=== PATIENT | female | born 2000 | race Caucasian/White ===

== ENCOUNTER 2020-01-03 01:36 | Emergency (ER) | payer SELFPAY ==
[~2020-01-03] VITALS: Ht 167.6 cm; Wt 72.6 kg
[2020-01-03 04:54] VITALS: BP 128/75
[2020-01-03] MEDS ORDERED: ACETAMINOPHEN 500 MG TAB PO ONE (05:00)
[2020-01-03] MEDS ORDERED: IBUPROFEN 800 MG TAB PO ONE (05:00)
== END 2020-01-03 06:01 | disposition home or self-care (01) ==
LOC: EDBD 01:36 → ER 01:41
DX: M79.89 Other specified soft tissue disorders (principal); V43.62XA Car passenger injured in collision with other type car in traffic accident, initial encounter; Y93.89 Activity, other specified; Y99.8 Other external cause status; Y92.410 Unspecified street and highway as the place of occurrence of the external cause
CPT/HCPCS: 70450; 71046; 72125; 73562; 73610

== ENCOUNTER 2020-10-25 12:21 | Emergency (ER) | payer MEDICAID ==
[~2020-10-25] VITALS: Ht 167.6 cm; Wt 104.3 kg
[2020-10-25] MEDS ORDERED: KETOROLAC TROMETH 60MG/2ML VIAL IM ONE (16:15)
[2020-10-25 16:30] VITALS: BP 120/76
[2020-10-25] MEDS ORDERED: IBUPROFEN 800 MG TAB PO ONE (16:30)
== END 2020-10-25 16:43 | disposition home or self-care (01) ==
LOC: ER 12:21
DX: M23.91 Unspecified internal derangement of right knee (principal); M71.21 Synovial cyst of popliteal space [Baker], right knee
CPT/HCPCS: 73700; 81025; 99284; J1885